=== PATIENT | male | born 1985 | race American Indian/Alaskan Native ===

== ENCOUNTER 2017-04-16 17:07 | Emergency (ER) | payer SELFPAY ==
[2017-04-16 17:35] VITALS: BP 124/73
[2017-04-16] MEDS ORDERED: TYLENOL ONE (17:35)
[2017-04-16] MEDS ORDERED: TYLENOL PO ONE (17:35)
== END 2017-04-16 22:00 | disposition left against medical advice (07) ==
LOC: ED 17:07
DX: R50.9 Fever, unspecified (principal); Z53.21 Procedure and treatment not carried out due to patient leaving prior to being seen by health care provider